=== PATIENT | female | born 1955 | race Caucasian/White ===

== ENCOUNTER 2017-09-07 08:43 | Day surgery (SDC) | payer OTHER ==
[2017-09-07] MEDS ORDERED: FENTAnyl 50 MCG/ML VIAL (10:09)
[2017-09-07] MEDS ORDERED: MIDAZOLAM 1 MG/ML 2 ML INJ (10:09)
== END 2017-09-07 11:06 | disposition home or self-care (01) ==
LOC: GIL 08:43
DX: Z12.11 Encounter for screening for malignant neoplasm of colon (principal); D12.6 Benign neoplasm of colon, unspecified; K64.8 Other hemorrhoids; E11.9 Type 2 diabetes mellitus without complications
CPT/HCPCS: 45380; 82962; 88305